=== PATIENT | female | born 1995 | race Asian ===

== ENCOUNTER 2018-11-01 18:03 | Observation (INO) | payer OTHER ==
--- NOTE | 2018-11-01 18:12 | ED ---
GI/ HPI - HPI Summary HPI Summary: A 23 y/o female brought in by [facility] ambulance presents to [facility] with a chief complaint of abdominal pain since 12:00 today. The patient reports that she gets similar pain when she eats fried foods and she ate a chicken sandwich at [employer]. She claims that this usually happens to her about once per year. She also notes N/V, stating that it is yellow in color, and dizziness. Pt denies any hematemesis, fever, chills, erythema of eyes, sore throat, CP, SOB, cough, dysuria, hematuria, back pain, myalgia, edema or rash. She does not have her period, takes control and denies chance of . She used a hot pack on her abdomen [employer]GS[employer]HER. She is unsure if she has a Hx of UTI. - History of Current Complaint Time Seen by Provider: 11/01/18 18:10 Stated Complaint: ABD PAIN PER EMS Hx Obtained From: Patient Onset/Duration: Started Hours Ago, Still Present Timing: Constant, Lasting Hours Severity: Severe Current Severity: Severe Pain Intensity: 8 - out of 10 Location of Pain: Diffuse Pain Characteristics: Unable to describe Associated Signs and Symptoms: Positive: Nausea, Vomiting. Negative: Back Pain , Fever, Hematuria, Dysuria, Cough, Chest Pain - Allergy/Home Medications Allergies/Adverse Reactions: Allergies Allergy/AdvReac Type Severity Reaction Status Date / Time No Known Allergies Allergy Verified 11/01/18 18:19 PMH/Surg Hx/FS Hx/Imm Hx Sensory History: Denies: Hx Deafness EENT History: Denies: Hx Deafness - Surgical History Surgery Procedure, Year, and Place: none reported - Family History Known Family History: Negative: Blood Disorder - Social History Occupation: Student Alcohol Use: None Hx Substance Use: No Substance Use Type: Reports: None Hx Tobacco Use: No Smoking Status (MU): Never Smoked Tobacco Review of Systems Negative: Fever, Chills Negative: Erythema Negative: Sore Throat Negative: Chest Pain Negative: Shortness Of Breath, Cough Positive: Abdominal Pain, Vomiting, Nausea Negative: dysuria, hematuria Negative: Myalgia, Edema Negative: Rash Neurological: Negative - dizziness All Other Systems Reviewed And Are Negative: Yes Physical Exam - Summary Physical Exam Summary: Constitutional: Well-developed, Well-nourished, Alert. (-) Distressed Skin: Warm, Dry HENT: Normocephalic; Atraumatic Eyes: Conjunctiva normal Neck: Musculoskeletal ROM normal neck. (-) JVD, (-) Stridor, (-) Tracheal deviation Cardio: Rhythm regular, rate normal, Heart sounds normal; Intact distal pulses; The pedal pulses are 2+ and symmetric. Radial pulses are 2+ and symmetric. (-) Murmur Pulmonary/Chest wall: Effort normal. (-) Respiratory distress, (-) Wheezes, (-) Rales Abd: Soft, (+) suprapubic and RLQ tenderness, (-) Distension, (-) Guarding, (-) Rebound Musculoskeletal: (-) Edema Lymph: (-) Cervical adenopathy Neuro: Alert, Oriented x3 Psych: Mood and affect Normal Triage Information Reviewed: Yes Vital Signs Reviewed: Yes Diagnostics - Laboratory Result Diagrams: 11/03/18 12:32 11/04/18 05:43 Lab Statement: Any lab studies that have been ordered have been reviewed, and results considered in the medical decision making process. - Ultrasound No standard instances Ultrasound Interpretation Completed By: Radiologist Summary of Ultrasound Findings: Transvaginal ultrasound impression: 1. Findings suggest acute appendicitis. Correlate with concurrently obtained. right lower quadrant ultrasound. 2. Sonographically normal uterus and ovaries. ED physician has reviewed this imaging report. Appendix ultrasound impression : Findings of acute appendicitis. ED physician has reviewed this imaging report. Re-Evaluation - Re-Evaluation First Eval Re-Evaluation Time: 21:24 Change: Unchanged Comment: rated pain as a 4/10, requesting pain medications GIGU Course/Dx - Course Course Of Treatment: A 23 y/o female brought in by [facility] ambulance presents to [facility] with a chief complaint of abdominal pain since 12:00 today. The patient reports that she gets similar pain when she eats fried foods and she ate a chicken sandwich at [employer]. She claims that this usually happens to her about once per year. She also notes N/V, stating that it is yellow in color. She also reports dizziness. Pt denies any hematemesis, fever, chills, erythema of eyes, sore throat, CP, SOB, cough, dysuria, hematuria, back pain, myalgia, edema or rash. The physical exam revealed suprapubic and RLQ tenderness. Bloodwork, chemistries and urines obtained. Urine ketones 1+. In the ED course the patient was given Sodium Chloride IV and Zofran IV. Transvaginal ultrasound impression: 1. Findings suggest acute appendicitis. Correlate with concurrently obtained. right lower quadrant ultrasound. 2. Sonographically normal uterus and ovaries. Appendix ultrasound impression: Findings of acute appendicitis. The patient does not appear septic or toxic. Case discussed with Dr. Alegre, surgery, who accepted the patient for admission. - Diagnoses Provider Diagnoses: Acute appendicitis - Physician Notifications Discussed Care Of Patient With: Remedios Alegre Time Discussed With Above Provider: 20:59 Instructed by Provider To: Admit As Inpatient Discharge - Sign-Out/Discharge Documenting (check all that apply): Patient Departure - admit Patient Received Moderate/Deep Sedation with Procedure: No - Discharge Plan Condition: Stable Disposition: ADMITTED TO [facility] - Billing Disposition and Condition Condition: STABLE Disposition: Admitted to [facility] - Attestation Statements Document Initiated by Scribe: Yes Documenting Scribe: Morgan Meyers Provider For Whom Scribe is Documenting (Include Credential): Adama Ruth MD Scribe Attestation: Morgan Ramsay, scribed for Adama Ruth MD on 11/15/18 at 0756. Scribe Documentation Reviewed: Yes Provider Attestation: The documentation as recorded by the Morgan garcia accurately reflects the service I personally performed and the decisions made by Adama morgan MD Status of Scribe Document: Viewed
[2018-11-01] MEDS ORDERED: Ondansetron INJ* 2 MG/ML VIAL IV ONE ×2 (18:23→21:24)
[2018-11-01 18:51] LABS: ABS Lymphocytes 0.7 10^3/ul (1.0-4.8); ABS Monocytes 0.3 10^3/ul (0-0.8); ABS Neutrophils 9.6 10^3/ul (1.5-7.7); Eosinophil % 0.1 %; Hematocrit 39 % (35-47); Hemoglobin 13.4 g/dL (12.0-16.0); Lymphocyte % 6.2 %; Mean Corpuscular HGB Conc 34 g/dL (31-36); Mean Corpuscular Hemoglobin 33 pg (27-31); Mean Corpuscular Volume 96 fL (80-97); Mean Platelet Volume 8.1 fL (7.4-10.4); Platelet Count 179 10^3/uL (150-450); Red Blood Count 4.09 10^6 /uL (3.70-4.87); Red Cell Distribution Width 12 % (10.5-15); White Blood Count 10.6 10^3/uL (3.5-10.8)
[2018-11-01 18:59] LABS: Urine Appearance Cloudy; Urine Bacteria Absent (Absent); Urine Bilirubin Negative (Negative); Urine Blood Negative (Negative); Urine Color Yellow; Urine Glucose Negative (Negative); Urine Ketones 1+ (Negative); Urine Nitrite Negative (Negative); Urine Protein Negative (Negative); Urine Red Blood Cell Absent (Absent); Urine Specific Gravity 1.021 (1.010-1.030); Urine Squamous Epithelial Cell Present (Absent); Urine Urobilinogen Negative (Negative); Urine White Blood Cell Trace(0-5/hpf) (Absent)
[2018-11-01] MEDS: NS 0.9% 1000 ML** 2,000 ML IV ONE (19:02)
[2018-11-01 19:09] LABS: ALT 11 U/L (7-52); AST 15 U/L (13-39); Albumin 4.4 g/dL (3.2-5.2); Albumin/Globulin Ratio 1.5 (1-3); Alkaline Phosphatase 51 U/L (34-104); Anion Gap 6 mmol/L (2-11); BUN/Creatinine Ratio 18.6 (8-20); Blood Urea Nitrogen 13 mg/dL (6-24); C Reactive Protein < 1.00 mg/L (<8.01); CO2 Carbon Dioxide 24 mmol/L (22-32); Calcium 9.4 mg/dL (8.6-10.3); Chloride 108 mmol/L (101-111); EGFR African American 125.5 (>60); EGFR Non-African American 103.7 (>60); Globulin 2.9 g/dL (2-4); Glucose 97 mg/dL (70-100); Potassium 3.6 mmol/L (3.5-5.0); Sodium 138 mmol/L (135-145); Total Protein 7.3 g/dL (6.4-8.9)
[2018-11-01 19:15] LABS: HCG Pregnancy < 0.60 mIU/mL
[2018-11-01] MEDS ORDERED: ceFOXitin 2 GM IVPREMIX* 2 GM/50 ML BAG IVPB ONE (20:48)
[2018-11-01] MEDS ORDERED: HYDROmorphone INJ1* 1 MG/ML SYRINGE IV SLOW PU PRN (21:04)
[2018-11-01] MEDS ORDERED: Ondansetron INJ* 2 MG/ML VIAL IV PRN (21:04)
[2018-11-01] MEDS ORDERED: Morphine 4 MG/ML VIAL (1 ml) 4 MG/ML VIAL IV ONE (21:25)
[2018-11-01] MEDS ORDERED: Piperacillin/Tazobactam VIAL*) 3.375 GM in NS 0.9% 100 ML* 100 ML IVPB SCH (22:00)
[2018-11-01] MEDS ORDERED: ZOSYN 3.375 GM x ONE DOSE over 30 miuntes IVPB ×2 (22:00)
[2018-11-01] MEDS: Lactated Ringers 1000 ML Bag* 1,000 ML IV SCH (23:11)
[2018-11-02] MEDS ORDERED: ZOSYN 3.375 GM Q8H per EXTENDED INFUSION IVPB SCH ×2 (02:30)
[2018-11-02] MEDS ORDERED: NS 0.9% 1000 ML** 1,000 ML IV ONE (04:00)
[2018-11-02] MEDS: Ketorolac INJ* 15 MG/ML 1 ML VIAL IV PUSH PRN ×2 (04:16→21:25)
[2018-11-02] MEDS: ZOSYN 3.375 GM Q6H - Intermittant 30 min Infusion IVPB SCH ×6 (04:16→17:13)
[2018-11-02] MEDS: Lactated Ringers 1000 ML Bag* 1,000 ML IV SCH (06:16)
--- NOTE | 2018-11-02 08:23 | PN ---
Progress Note - Progress Note Date of Service: 11/02/18 Note: Surgery Progress Note S: Patient was sleeping well. Has periumbilical pain that is better with pain medication. No emesis. Ambulating to bathroom. O: Vital Signs: Temp Pulse Resp BP Pulse Ox 98.2 F 80 16 85/45 97 11/02/18 03:44 11/02/18 03:53 11/02/18 03:44 11/02/18 03:53 11/02/18 03:44 Laboratory Last Values WBC 10.6 10^3/uL (3.5-10.8) 11/01/18 18:45 RBC 4.09 10^6 /uL (3.70-4.87) 11/01/18 18:45 Hgb 13.4 g/dL (12.0-16.0) 11/01/18 18:45 Hct 39 % (35-47) 11/01/18 18:45 MCV 96 fL (80-97) 11/01/18 18:45 MCH 33 pg (27-31) H 11/01/18 18:45 MCHC 34 g/dL (31-36) 11/01/18 18:45 RDW 12 % (10.5-15) 11/01/18 18:45 Plt Count 179 10^3/uL (150-450) 11/01/18 18:45 MPV 8.1 fL (7.4-10.4) 11/01/18 18:45 Neut % (Auto) 90.6 % 11/01/18 18:45 Lymph % (Auto) 6.2 % 11/01/18 18:45 Green % (Auto) 2.8 % 11/01/18 18:45 Eos % (Auto) 0.1 % 11/01/18 18:45 Baso % (Auto) 0.3 % 11/01/18 18:45 Absolute Neuts (auto) 9.6 10^3/ul (1.5-7.7) H 11/01/18 18:45 Absolute Lymphs (auto) 0.7 10^3/ul (1.0-4.8) L 11/01/18 18:45 Absolute Monos (auto) 0.3 10^3/ul (0-0.8) 11/01/18 18:45 Absolute Eos (auto) 0.0 10^3/ul (0-0.6) 11/01/18 18:45 Absolute Basos (auto) 0.0 10^3/ul (0-0.2) 11/01/18 18:45 Absolute Nucleated RBC 0.0 10^3/ul 11/01/18 18:45 Nucleated RBC % 0.0 11/01/18 18:45 Sodium 138 mmol/L (135-145) 11/01/18 18:45 Potassium 3.6 mmol/L (3.5-5.0) 11/01/18 18:45 Chloride 108 mmol/L (101-111) 11/01/18 18:45 Carbon Dioxide 24 mmol/L (22-32) 11/01/18 18:45 Anion Gap 6 mmol/L (2-11) 11/01/18 18:45 BUN 13 mg/dL (6-24) 11/01/18 18:45 Creatinine 0.70 mg/dL (0.51-0.95) 11/01/18 18:45 Est GFR ( Amer) 125.5 (>60) 11/01/18 18:45 Est GFR (Non-Af Amer) 103.7 (>60) 11/01/18 18:45 BUN/Creatinine Ratio 18.6 (8-20) 11/01/18 18:45 Glucose 97 mg/dL (70-100) 11/01/18 18:45 Lactic Acid 2.0 mmol/L (0.5-2.0) 11/01/18 23:09 Calcium 9.4 mg/dL (8.6-10.3) 11/01/18 18:45 Total Bilirubin 0.90 mg/dL (0.2-1.0) 11/01/18 18:45 AST 15 U/L (13-39) 11/01/18 18:45 ALT 11 U/L (7-52) 11/01/18 18:45 Alkaline Phosphatase 51 U/L (34-104) 11/01/18 18:45 C-Reactive Protein < 1.00 mg/L (<8.01) 11/01/18 18:45 Total Protein 7.3 g/dL (6.4-8.9) 11/01/18 18:45 Albumin 4.4 g/dL (3.2-5.2) 11/01/18 18:45 Globulin 2.9 g/dL (2-4) 11/01/18 18:45 Albumin/Globulin Ratio 1.5 (1-3) 11/01/18 18:45 Lipase 11 U/L (11.0-82.0) 11/01/18 18:45 Beta HCG, Quant < 0.60 mIU/mL 11/01/18 18:45 Urine Color Yellow 11/01/18 18:30 Urine Appearance Cloudy 11/01/18 18:30 Urine pH 6.0 (5-9) 11/01/18 18:30 Ur Specific [place] 1.021 (1.010-1.030) 11/01/18 18:30 Urine Protein Negative (Negative) 11/01/18 18:30 Urine Ketones 1+ (Negative) A 11/01/18 18:30 Urine Blood Negative (Negative) 11/01/18 18:30 Urine Nitrate Negative (Negative) 11/01/18 18:30 Urine Bilirubin Negative (Negative) 11/01/18 18:30 Urine Urobilinogen Negative (Negative) 11/01/18 18:30 Ur Leukocyte Esterase Trace (Negative) A 11/01/18 18:30 Urine WBC (Auto) Trace(0-5/hpf) (Absent) 11/01/18 18:30 Urine RBC (Auto) Absent (Absent) 11/01/18 18:30 Ur Squamous Epith Cells Present (Absent) A 11/01/18 18:30 Urine Bacteria Absent (Absent) 11/01/18 18:30 Urine Glucose Negative (Negative) 11/01/18 18:30 Intake & Output 11/01/18 11/02/18 11/02/18 22:59 06:59 14:59 Intake Total 1999 1345 Output Total 900 Balance 1999 445 Weight 95 lb 95 lb Intake: IV Fluids 1999 1345 LR 345 ns 1000 Oral 0 Output: Urine 900 Other: Estimated Void Small # Voids 2 Abd: soft, minimally tender in RLQ and LLQ, no rebound, no guarding A/P: 23 yo F with acute appendicitis. - OR for laparoscopic appendectomy with Dr. Pal. I discussed risks, benefits and alternatives with patient using publications designer.
[2018-11-02] MEDS ORDERED: Ondansetron INJ* 2 MG/ML VIAL ONE (10:19)
[2018-11-02] MEDS ORDERED: Midazolam* 1 MG/ML 5 ML VIAL (5 MG) ONE (10:19)
[2018-11-02] MEDS ORDERED: Cisatracurium* 2 MG/ML MDV 5 ML ONE (10:19)
[2018-11-02] MEDS ORDERED: Lidocaine 2% PF * 5 ML VIAL ONE (10:19)
[2018-11-02] MEDS ORDERED: Dexamethasone IV* 4 MG/ML 1 ML (4 MG) ONE (10:19)
[2018-11-02] MEDS ORDERED: fentaNYL* 50 MCG/ML 2 ML VIAL (100 MCG VIAL) ONE (10:19)
[2018-11-02] MEDS ORDERED: Propofol* 10 MG/ML 20 ML BTL ONE (10:19)
[2018-11-02] MEDS ORDERED: Bupivacaine 0.25% W/EPI* 10 ML SDV ONE (11:07)
--- NOTE | 2018-11-02 11:18 | HP ---
HISTORY AND PHYSICAL: DATE OF ADMISSION: 11/01/18 REASON FOR ADMISSION: Acute appendicitis. HISTORY OF PRESENT ILLNESS: Ms. Munoz is a very pleasant, healthy 23-year-old female who is from [place] and is a student affairs dean at [employer], who presented to the emergency room yesterday evening with complaints of abdominal pain, nausea, and vomiting since about noon that day. She said that she has had an episode similar to this occur approximately every year when she was living back home in [place]. She said that she had previously had this evaluated and was told that she did not have appendicitis in the years past. However, in the emergency room , she underwent a transvaginal as well as a right lower quadrant ultrasound, which identified a noncompressible tubular structure that was dilated in the right lower quadrant consistent with acute appendicitis. She was therefore admitted for IV antibiotics, resuscitation and antibiotics. This morning, she said that she did not have much pain and it is mainly localized around the umbilicus. She does not have any nausea or vomiting any more. PAST MEDICAL HISTORY: None. PAST SURGICAL HISTORY: None. MEDICATIONS: None. She has an subcutaneous control ALLERGIES: No known drug allergies. FAMILY HISTORY: Noncontributory. SOCIAL HISTORY: The patient is a student at [employer] from [place]. REVIEW OF SYSTEMS: Negative except for as noted in HPI. PHYSICAL EXAMINATION GENERAL: She is a young woman lying comfortably in bed, in no apparent distress. VITAL SIGNS: The patient is afebrile and the remainder of her vital signs are within normal limits. HEENT: Normocephalic, atraumatic. RESPIRATORY: Clear to auscultation bilaterally. CARDIOVASCULAR: Regular rate and rhythm. ABDOMEN: Soft, minimally tender in the right lower quadrant and left lower quadrant. No rebound or guarding. EXTREMITIES: No edema. DIAGNOSTIC STUDIES/LABORATORY DATA: White blood cell count is 10.6, hemoglobin is 13.4, hematocrit is 39, platelets are 179. BMP is all within normal limits. Beta hCG is less than 0.6. UA is negative. Imaging: Reviewed, Appendix ultrasound shows there is a tubular noncompressible structure in the right lower quadrant with some surrounding fluid consistent with acute appendicitis. ASSESSMENT AND PLAN: Ms. Munoz is a 23-year-old healthy female with no significant medical problems, who presented to the emergency room yesterday evening with nausea, vomiting, and abdominal pain and was found on ultrasound to have acute appendicitis. She was admitted for IV antibiotics and resuscitation and will be taken to the operating room this morning by Dr. Pal for a laparoscopic appendectomy. Using a Mandarin stove tender, I reviewed with her the surgical procedure as well as the risks, benefits, alternatives. I discussed that the risks include, but are not limited to bleeding, infection, injuries to nearby structures such as the bladder, small bowel, and colon. She understands and wishes to proceed with surgery. All questions were answered. Expectations regarding recovery were also discussed with the patient. [id number]/[facility] #: [id number] KATHRYN
[2018-11-02] MEDS ORDERED: Naloxone* 0.4 MG/ML 1 ML VIAL IV PRN (12:18)
[2018-11-02] MEDS ORDERED: Ondansetron INJ* 2 MG/ML VIAL IV PRN (12:18)
[2018-11-02] MEDS ORDERED: fentaNYL* 50 MCG/ML 2 ML VIAL (100 MCG VIAL) IV PRN (12:18)
[2018-11-02] MEDS ORDERED: Neostigmine Methylsulfate* 1 MG/ML 10 ML VIAL (1 mg/ml) ONE (12:20)
[2018-11-02] MEDS ORDERED: Glycopyrrolate IV* 0.2 MG/ML 1 ML VIAL ONE (12:20)
--- NOTE | 2018-11-02 12:41 | BRIEFOPN ---
Brief Operative Note - Surgery Procedures: Pre-OP Diagnoses: acute appendicitis Post-op Diagnosis: same Procedure: Laparoscopic appendectomy Surgeon: Kae Asst: none Anethesia: FAROOQA EBL: minimal IVF: crystalloid Specimen: appendix Drains: none
--- NOTE | 2018-11-02 17:18 | OP ---
CC: [facility] OPERATIVE REPORT: DATE OF OPERATION: 11/02/18 DATE OF : 89 SURGEON: Daniel Pal MD COMPRESSOR HOUSE OPERATOR: None. ANESTHESIOLOGIST: Dr. Cho. ANESTHESIA: General anesthesia. PRE-OP DIAGNOSIS: Acute appendicitis. POST-OP DIAGNOSES: Acute appendicitis. OPERATIVE PROCEDURE: Laparoscopic appendectomy. ESTIMATED BLOOD LOSS: Minimal blood loss. FLUIDS: Minimal crystalloid fluid given. SPECIMEN: Appendix, nonperforated. INDICATIONS: Ms. Munoz is a 23-year-old female admitted overnight with a diagnosis of acute appendicit is after undergoing ultrasound and labs. The patient was seen by my partner, Dr. Alegre, who outlined t he details of recommended laparoscopic appendectomy with the help of a steam turbine assembler. The patient agree d to proceed in this fashion. I took over the case and discussed this with Dr. Alegre. I discussed thi s with the patient whose command of Romanian I felt was good enough. She did not require a steam turbine assembler at that time and we discussed the risks, benefits, and alternatives to the procedure and spoke of th e possible complications which included, but not limited to bleeding, infection, injury to adjacent o rgans, hernia, and need for additional procedures. The patient's questions were answered and a conse nt was signed. DESCRIPTION OF PROCEDURE: She was marked, taken to the operating room, placed on the operating table in the supine position. Preoperative antibiotics were given. Sequential devices were placed on bila teral lower extremities and general anesthesia was induced. The patient's abdomen was prepped and dr aped in the standard surgical fashion and a time-out was performed. An infraumbilical incision was made. This skin was then elevated and a Veress needle inserted into t he abdominal cavity, which was then allowed to insufflate to a pressure of 15 mmHg. The patient tole rated the insufflation well. A 12-mm Optiview was then inserted through this incision and review of the abdomen showed free fluid in the pelvis. There was no blood. Additional trocars were then placed in the following position: A 5-mm in the left lower quadrant and a 5-mm in the suprapubic area. Table was repositioned and small bowel was reflected superiorly and the appendix was identified. Thi s was thickened, nonperforated. This was grasped and the lateral attachments were taken with an elec trocautery. A window was made at the base of the appendix through healthy tissue and a 30-mm pena JAMIN stapling device was fired through this. Next, we isolated the artery and doubly clipped this and li gated, placed the appendix in an endoscopic retrieval bag and placed it up in the right upper quadran t. We then placed a gauze in the abdomen to evaluate the staple line and the clips. There was no bleedin g or enteric contents. We then dropped this gauze into the pelvis and absorbed some of the free flui d. This gauze was then removed as was the appendix in its endoscopic retrieval bag through the umbil ical port site. The umbilical port site was then closed at the fascial layer with an 0 Polysorb sutu re using a Weck device. Abdomen was allowed to collapse. The other trocars were removed and all 3 s kin incisions were reapproximated with 4-0 Monocryl subcuticular sutures followed by Steri-Strips and sterile dressing. [id number]/[facility] #: [id number]
[2018-11-03] MEDS: Lactated Ringers 1000 ML Bag* 1,000 ML IV SCH (00:02)
[2018-11-03] MEDS: oxyCODONE/Acetamin 5/325 MG* TAB PO PRN ×2 (06:17→23:20)
--- NOTE | 2018-11-03 10:45 | PN ---
Progress Note - Progress Note Date of Service: 11/03/18 SOAP: Subjective: Pt seen and examined. abdo pain, dysuria Objective: Temp Pulse Resp BP Pulse Ox 98.7 F 59 14 91/42 97 11/03/18 08:34 11/03/18 08:34 11/03/18 08:34 11/03/18 08:34 11/03/18 08:34 Intake & Output 11/02/18 11/03/18 11/03/18 22:59 06:59 14:59 Intake Total 360 990 638 Output Total 1675 300 700 Balance -1315 690 -62 a and o x3, mild distress abdo: soft/ distended, incisional tenderness no redness ext wnl Assessment: POD 1 lap appy, urinary symptoms; pt has no support at home Plan: keep 1 more day labs, UA pain control encourage ambulation
[2018-11-03] MEDS ORDERED: Benzocaine/Menthol LOZ* 1 LOZENGE PO PRN (11:22)
[2018-11-03 12:50] LABS: ABS Lymphocytes 1.7 10^3/ul (1.0-4.8); ABS Monocytes 0.4 10^3/ul (0-0.8); ABS Neutrophils 4.4 10^3/ul (1.5-7.7); Eosinophil % 0.1 %; Hematocrit 37 % (35-47); Hemoglobin 12.3 g/dL (12.0-16.0); Lymphocyte % 25.8 %; Mean Corpuscular HGB Conc 34 g/dL (31-36); Mean Corpuscular Hemoglobin 33 pg (27-31); Mean Corpuscular Volume 97 fL (80-97); Mean Platelet Volume 7.9 fL (7.4-10.4); Platelet Count 185 10^3/uL (150-450); Red Blood Count 3.76 10^6 /uL (3.70-4.87); Red Cell Distribution Width 13 % (10.5-15); White Blood Count 6.5 10^3/uL (3.5-10.8)
[2018-11-03 13:06] LABS: BUN/Creatinine Ratio 10.5 (8-20); Calcium 9.1 mg/dL (8.6-10.3); EGFR African American 98.9 (>60); EGFR Non-African American 81.8 (>60); Potassium 2.9 mmol/L (3.5-5.0)
[2018-11-03] MEDS: Ketorolac INJ* 15 MG/ML 1 ML VIAL IV PUSH PRN (13:24)
[2018-11-03] MEDS: KCL 20 MEQ/100 ML IVPREMIX* 20 MEQ/100 ML BAG IV SCH ×3 (13:50→20:53)
[2018-11-04 06:16] LABS: BUN/Creatinine Ratio 12.9 (8-20); Calcium 8.6 mg/dL (8.6-10.3); EGFR African American 125.5 (>60); EGFR Non-African American 103.7 (>60); Potassium 3.6 mmol/L (3.5-5.0)
[2018-11-04] MEDS: oxyCODONE/Acetamin 5/325 MG* TAB PO PRN (14:05)
[2018-11-04 14:16] VITALS: BP 95/53
--- NOTE | 2018-11-05 03:27 | DS ---
CC: [facility] * DISCHARGE SUMMARY: DATE OF ADMISSION: 11/02/18 DATE OF DISCHARGE: 11/04/18 ATTENDING SURGEON: Dr. Daniel Pal.* (DICTATED BY PRIMITIVO BELTRAN NP) HOSPITAL COURSE: Please refer to admission history and physical for admission details. The patient was taken to the operating room on 11/02/18, and underwent laparoscopic appendectomy. She has had an uneventful postoperative course and as of the morning of discharge was tolerating a regular diet. Her pain was well controlled. She was ambulating in the halls and urinating in large amounts. PHYSICAL EXAMINATION: Vital Signs: Temperature 98.5, blood pressure 94/50, heart rate 63, respiratory rate 16, and O2 saturation on room air 97%. General : Well nourished and in no acute distress sitting up in a chair. Lungs: Breath sounds bilaterally clear and equal. Heart: Regular rate and rhythm. No murmurs or rubs. Abdomen: Laparoscopic incision sites intact with Steri- Strips, gauze, and Tegaderm, no active bleeding or drainage or surrounding erythema; bowel sounds are present. Her abdomen is soft with appropriate tenderness and mild bloating. Extremities: Nontender calves. IMPRESSION: Status post laparoscopic appendectomy. Her condition is stable. PLAN: Discharge home today; discharge instructions were reviewed with the patient. She has had an opportunity to ask questions and expressed understanding ; a followup postoperative appointment was scheduled for 11/11/18 in our office; a prescription for oxycodone, acetaminophen 5/325 mg was provided, and I advised ibuprofen for milder pain. PRIMITIVO BELTRAN NP [id number]/[facility] #: [id number] [facility]
== END 2018-11-04 14:30 | disposition home or self-care (01) | DRG 343 ==
LOC: ED 18:03 → SSU 21:04 → INTOOBSV 21:04
PROVIDERS: ADMIT Surgery; ATTEND Surgery
DX: K35.890 Other acute appendicitis without perforation or gangrene (principal)
CPT/HCPCS: 36415; 76705; 76830; 80048; 80053; 81003; 81015; 83605; 83690; 84702; 85025; 86140; 87086; 88304; 96374; 96375; 99284; A9270-GY; G0378; J0694; J1100; J1885; J2250; J2270; J2405; J2543; J2704; J2710; J3010; J3480